=== PATIENT | male | born 1980 | race Caucasian/White ===

== ENCOUNTER 2020-07-31 15:44 | Outpatient (REF) | payer OTHER, SELFPAY ==
--- NOTE | 2020-07-31 15:14 | SKI_PTH ---
PATIENT: Lázaro Thrasher LOC: [facility] U#:[id number] AGE/SX: 40/M ROOM: RE07/31/[address]: ARIANNE Scanlon : 1980 BED: DIS: 07/31/2020 SPEC #: [id number] RECD: 07/31/20 17:27 STATUS: JOY REBayron #: [id number] CARSON: 07/31/20 15:[address]: Rohan Lucas DEPT: Surgical Specimen RECD BY: Deepali Snyder ENTERED: 07/31/20 17:27 SP TYPE: LAYO CISNEROS DR: Maikel Drake MD Tissues: 1 - SKIN BIOPSY(SHAVE/PUNCH) 2 - SKIN BIOPSY(SHAVE/PUNCH) Procedures: SKIN LEVEL 4 Comments: [id number]
== END 2020-07-31 15:45 | disposition home or self-care (01) ==
LOC: LBN 15:44
PROVIDERS: PCP Family Medicine; Visit Provider Physician Assistant
DX: C44.319 Basal cell carcinoma of skin of other parts of face (principal); H61.021 Chronic perichondritis of right external ear
CPT/HCPCS: 88305

== ENCOUNTER 2021-10-07 01:43 | Outpatient (CLI) | payer OTHER, SELFPAY ==
[2021-10-07 12:48] LABS: Calculated LDL 176 mg/dL (<100); Cholesterol 264 mg/dL (<200); Glucose 90 mg/dL (74-106); HDL Cholesterol 54 mg/dL (40-60); Triglyceride 173 mg/dL (<150)
== END 2021-10-07 01:44 | disposition home or self-care (01) ==
LOC: LOS 01:43
PROVIDERS: PCP Family Medicine; Visit Provider Family Medicine
DX: E78.5 Hyperlipidemia, unspecified (principal); R73.9 Hyperglycemia, unspecified
CPT/HCPCS: 36415; 80061; 82947

== ENCOUNTER 2022-08-14 15:54 | Outpatient (REF) | payer OTHER, SELFPAY ==
--- NOTE | 2022-08-14 15:10 | SKI_PTH ---
PATIENT: Lázaro Thrasher LOC: [facility] U#:[id number] AGE/SX: 42/M ROOM: RE08/14/[address]: Phill Bueno DO : 1980 BED: DIS: 08/14/2022 SPEC #: [id number] RECD: 08/17/22 11:41 STATUS: JOY REQ #: [id number] CARSON: 08/14/22 15:[address]: Phill Bueno DEPT: Surgical Specimen RECD BY: Deepali Snyder ENTERED: 08/17/22 11:42 SP TYPE: LAYO CISNEROS DR: Maikel Drake MD Tissues: 1 - SKIN BIOPSY(SHAVE/PUNCH) 2 - SKIN BIOPSY(SHAVE/PUNCH) Procedures: SKIN LEVEL 4 Comments: [id number]
== END 2022-08-14 15:55 | disposition home or self-care (01) ==
LOC: LBN 15:54
PROVIDERS: PCP Family Medicine; Visit Provider Otolaryngology Otolaryngology/Facial Plastic Surgery
DX: L98.9 Disorder of the skin and subcutaneous tissue, unspecified (principal)
CPT/HCPCS: 88305

== ENCOUNTER 2023-05-14 15:43 | Outpatient (REF) | payer OTHER, SELFPAY ==
--- NOTE | 2023-05-14 14:48 | SKI_PTH ---
PATIENT: Lázaro Thrasher LOC: [facility] U#:[id number] AGE/SX: 43/M ROOM: RE05/14/[address]: ARIANNE Scanlon : 1980 BED: DIS: 05/14/2023 SPEC #: [id number] RECD: 05/17/23 12:43 STATUS: JOY REQ #: [id number] CARSON: 05/14/23 14:[address]: Rohan Lucas DEPT: Surgical Specimen RECD BY: Deepali Snyder ENTERED: 05/17/23 12:45 SP TYPE: LAYO CISNEROS DR: Maikel Drake MD Tissues: 1 - SKIN BIOPSY(SHAVE/PUNCH) Procedures: SKIN LEVEL 4 Comments: [id number]
== END 2023-05-14 15:44 | disposition home or self-care (01) ==
LOC: LBN 15:43
PROVIDERS: PCP Family Medicine; Visit Provider Physician Assistant
DX: D49.2 Neoplasm of unspecified behavior of bone, soft tissue, and skin (principal); C44.91 Basal cell carcinoma of skin, unspecified
CPT/HCPCS: 88305

== ENCOUNTER 2023-08-16 05:56 | Outpatient (CLI) | payer OTHER, SELFPAY ==
[2023-08-16 12:30] LABS: Calculated LDL 168 mg/dL (<100); Cholesterol 289 mg/dL (<200); Glucose 95 mg/dL (74-106); HDL Cholesterol 55 mg/dL (40-60); Triglyceride 330 mg/dL (<150)
== END 2023-08-16 05:57 | disposition home or self-care (01) ==
LOC: LOS 05:56
PROVIDERS: PCP Family Medicine; Visit Provider Family Medicine
DX: E78.5 Hyperlipidemia, unspecified (principal); R73.9 Hyperglycemia, unspecified
CPT/HCPCS: 36415; 80061; 82947

== ENCOUNTER 2024-07-10 08:22 | Emergency (ER) | payer OTHER, SELFPAY ==
[2024-07-10 08:41] VITALS: BP 128/89; PULSE 102; RESP 18; TEMP 36.6; O2SAT 96
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
[2024-07-10] MEDS: Lidocaine 5% Patch 1 PATCH TP (10:09)
== END 2024-07-10 10:12 | disposition home or self-care (01) ==
PROVIDERS: Emergency Provider Emergency Medicine; PCP Family Medicine
DX: S20.212A Contusion of left front wall of thorax, initial encounter (principal); V86.52XA Driver of snowmobile injured in nontraffic accident, initial encounter
CPT/HCPCS: 99283; 71046; 71100

== ENCOUNTER 2024-11-14 03:48 | Outpatient (CLI) | payer OTHER, SELFPAY ==
[2024-11-14 12:43] LABS: Calculated LDL 167 mg/dL (<100); Cholesterol 268 mg/dL (<200); Glucose 92 mg/dL (74-106); HDL Cholesterol 67 mg/dL (>or=40); Triglyceride 170 mg/dL (<150)
[2024-11-14 18:33] LABS: PSA, Screening 3.0 ng/mL (<=2.5)
== END 2024-11-14 03:49 | disposition home or self-care (01) ==
LOC: LOS 03:48
PROVIDERS: PCP Family Medicine; Visit Provider Family Medicine
DX: E78.5 Hyperlipidemia, unspecified (principal); R73.9 Hyperglycemia, unspecified; Z12.5 Encounter for screening for malignant neoplasm of prostate
CPT/HCPCS: 36415; 80061; 82947; 84153

== ENCOUNTER 2025-01-26 13:44 | Outpatient (REF) | payer OTHER, SELFPAY ==
--- NOTE | 2025-01-26 13:15 | SKI_PTH ---
PATIENT: Lázaro Thrasher LOC: [facility] U#:[id number] AGE/SX: 45/M ROOM: RE01/26/[address]: ARIANNE Scanlon : 1980 BED: DIS: 01/26/2025 SPEC #: [id number] RECD: 01/26/25 15:36 STATUS: JOY REQ #: [id number] CARSON: 01/26/25 13:[address]: Rohan Lucas DEPT: Surgical Specimen RECD BY: Deepali Snyder ENTERED: 01/26/25 15:36 SP TYPE: LAYO CISNEROS DR: Maikel Drake MD Tissues: 1 - SKIN BIOPSY(SHAVE/PUNCH) Procedures: SKIN LEVEL 4 Comments: [id number]
== END 2025-01-26 13:45 | disposition home or self-care (01) ==
LOC: LBN 13:44
PROVIDERS: PCP Family Medicine; Visit Provider Physician Assistant
DX: C44.319 Basal cell carcinoma of skin of other parts of face (principal)
CPT/HCPCS: 88305

== ENCOUNTER 2025-01-29 07:38 | Outpatient (CLI) | payer OTHER, SELFPAY ==
[2025-01-29 07:21] LABS: HCT 47.9 % (40.0-50.0); HGB 16.0 g/dL (13.5-17.5); MCH 29.9 pg (27.0-33.0); MCHC 33.4 % (32.0-36.0); MCV 90 fL (80-95); MPV 8.0 fL (8.0-11.0); Platelet Count 197 10^3/uL (130-400); RBC 5.35 10^6/uL (4.36-5.78); RDW 11.9 % (11.8-14.1); RDW-SD 39.0 fL; WBC 5.08 10^3/uL (4.4-10.8)
[2025-01-29 18:34] LABS: PSA, Diagnostic 2.8 ng/mL (<=2.5)
[2025-02-03 17:26] LABS: Testosterone, Free 58.6 pg/mL (35.0-155.0)
== END 2025-01-29 07:39 | disposition home or self-care (01) ==
LOC: LBO 07:38
PROVIDERS: PCP Family Medicine; Visit Provider Nurse Practitioner
DX: Z51.81 Encounter for therapeutic drug level monitoring (principal); Z12.5 Encounter for screening for malignant neoplasm of prostate
CPT/HCPCS: 36415; 84402; 84403; 85027; 84153; 85025